=== PATIENT | female | born 1995 | race Caucasian/White ===

== ENCOUNTER 2017-11-08 15:01 | Emergency (ER) | payer SELFPAY ==
[~2017-11-08] VITALS: Ht 162.6 cm; Wt 101.4 kg
[2017-11-08] MEDS ORDERED: PRENATAL (15:35)
[2017-11-08] MEDS ORDERED: ZOFRAN ODT4 MG PO (16:20)
[2017-11-08 16:53] VITALS: BP 133/82; PULSE 96; TEMP 98.2
== END 2017-11-08 16:45 | disposition home or self-care (01) ==
LOC: COL.ER 15:01
DX: O9A.212 Injury, poisoning and certain other consequences of external causes complicating pregnancy, second trimester (principal); O21.9 Vomiting of pregnancy, unspecified; S30.0XXA Contusion of lower back and pelvis, initial encounter; Z3A.15 15 weeks gestation of pregnancy; W18.39XA Other fall on same level, initial encounter

== ENCOUNTER 2018-03-20 20:26 | Outpatient (CLI) | payer MEDICAID ==
[~2018-03-20] VITALS: Ht 157.5 cm; Wt 114.1 kg
[~2018-03-20 20:26] MED LIST: PRENATAL; ZOFRAN ODT4 MG PO
[2018-03-20] MEDS ORDERED: TYLENOL 500MG500 MG PO (21:11)
[2018-03-20 21:28] VITALS: BP 110/57; PULSE 108; TEMP 97.6
== END 2018-03-20 21:45 ==
LOC: LDRO 20:26
DX: O36.8130 Decreased fetal movements, third trimester, not applicable or unspecified (principal); Z3A.34 34 weeks gestation of pregnancy

== ENCOUNTER 2018-04-22 08:29 | Inpatient (IN) | payer MEDICAID ==
[2018-04-22] VITALS (52 sets, daily range): BP systolic 98–144; BP diastolic 53–95; PULSE 86–125; TEMP 97.6–98.1
[~2018-04-22] VITALS: Ht 157.5 cm; Wt 120.0 kg
[~2018-04-22 08:29] MED LIST changes: +TYLENOL 500MG500 MG PO
[2018-04-22 10:35] LABS: BASO % 0.2 % (0.0-2.0); EOS # 0.1 (0.0-0.7); EOS % 0.8 % (0-4.0); GRAN # 8.6 (1.4-6.5); HEMATOCRIT 37.2 % (37.0-47.0); HEMOGLOBIN 13.2 g/dl (12.5-16.0); LYMPH # 2.4 (1.2-3.4); LYMPH % 19.6 % (20.0-51.0); MEAN CELL VOLUME 91 fl (80.0-100.0); MEAN CORPUSCULAR HEMOGLOBIN 32 pg (27.0-31.0); MEAN CORPUSCULAR HGB CONC 36 g/dl (33.0-37.0); MEAN PLATELET VOLUME 11.5 fl (7.4-10.4); MONO # 0.8 (0.1-0.6); MONO % 6.7 % (1.7-9.3); PLATELET COUNT 185 K/mm3 (130-400); RED BLOOD COUNT 4.07 M/mm3 (4.10-5.30); REDCELL DISTRIBUTION WIDTH-CV 12.2 % (11.5-14.5)
[2018-04-22 10:42] LABS: TRICYCLIC ANTIDEPRESS URINE NEGATIVE
[2018-04-23 00:05] VITALS: BP 111/63; PULSE 102; TEMP 98
[2018-04-23 03:55] VITALS: BP 106/45; PULSE 107; TEMP 98.5
[2018-04-23 07:02] VITALS: BP 109/70; PULSE 108; TEMP 98.5
[2018-04-23 17:54] VITALS: BP 98/52; PULSE 97; TEMP 97.9
[2018-04-23 20:30] VITALS: BP 116/75; PULSE 97; TEMP 97.7
[2018-04-24 08:00] VITALS: BP 122/73; PULSE 98; TEMP 97.4
[2018-04-24] MEDS ORDERED: LOVENOX 4040 MG/0.4 SQ (12:56)
[2018-04-24] MEDS ORDERED: PERCOCET 325 MG1 TA2 PO (12:57)
== END 2018-04-24 15:30 | disposition home or self-care (01) | DRG 806 ==
LOC: LDRO 08:29 → LDR 09:02 → OB 09:02
PROVIDERS: Obstetrics & Gynecology
PROC: 10E0XZZ Delivery of Products of Conception, External Approach (ICD-10-PCS; principal; 2018-04-22)
PROC: 0HQ9XZZ Repair Perineum Skin, External Approach (ICD-10-PCS; 2018-04-22)
DX: O42.02 Full-term premature rupture of membranes, onset of labor within 24 hours of rupture (principal); O99.354 Diseases of the nervous system complicating childbirth; Z37.0 Single live birth; O99.344 Other mental disorders complicating childbirth; O99.824 Streptococcus B carrier state complicating childbirth; Z3A.39 39 weeks gestation of pregnancy; Q07.00 Arnold-Chiari syndrome without spina bifida or hydrocephalus; Z86.73 Personal history of transient ischemic attack (TIA), and cerebral infarction without residual deficits; O99.214 Obesity complicating childbirth; F41.9 Anxiety disorder, unspecified; K21.9 Gastro-esophageal reflux disease without esophagitis; O99.62 Diseases of the digestive system complicating childbirth; O70.0 First degree perineal laceration during delivery
CPT/HCPCS: J1650; J2540; J2590; J2795; J7120

== ENCOUNTER 2018-12-08 16:19 | Emergency (ER) | payer MEDICAID ==
[~2018-12-08] VITALS: Ht 165.1 cm; Wt 120.9 kg
[~2018-12-08 16:19] MED LIST changes: +LOVENOX 4040 MG/0.4 SQ; +PERCOCET 325 MG1 TA2 PO
[2018-12-08 16:37] VITALS: BP 115/74; TEMP 98.7
[2018-12-08 18:31] LABS: COLLECTION METHOD CLEAN CATCH
[2018-12-08] MEDS ORDERED: PROAIR HFA0.09 MG/AC (18:33)
[2018-12-08 18:39] LABS: BASO # 0.1 (0.0-0.2); BASO % 0.6 % (0.0-2.0); EOS # 0.1 (0.0-0.7); EOS % 1.4 % (0-4.0); GRAN # 4.6 (1.4-6.5); GRAN % 51.3 % (42.2-75.2); HEMATOCRIT 43.2 % (37.0-47.0); HEMOGLOBIN 14.9 g/dl (12.5-16.0); LYMPH # 3.4 (1.2-3.4); MEAN CELL VOLUME 88 fl (80.0-100.0); MEAN CORPUSCULAR HEMOGLOBIN 30 pg (27.0-31.0); MEAN CORPUSCULAR HGB CONC 35 g/dl (33.0-37.0); MEAN PLATELET VOLUME 10.6 fl (7.4-10.4); MONO # 0.9 (0.1-0.6); MONO % 9.4 % (1.7-9.3); PLATELET COUNT 234 K/mm3 (130-400); RED BLOOD COUNT 4.91 M/mm3 (4.10-5.30); REDCELL DISTRIBUTION WIDTH-CV 12.2 % (11.5-14.5)
[2018-12-08 18:40] LABS: MUCOUS Present /lpf; PH 5 (5-8); SQUAMOUS EPITHELIAL 0-2 /hpf; URINE APPEARANCE Clear; URINE BACTERIA None Seen /hpf; URINE BILIRUBIN Negative (NEGATIVE); URINE BLOOD 3+ (NEGATIVE); URINE COLOR Yellow; URINE GLUCOSE Negative (NEGATIVE); URINE KETONE Negative (NEGATIVE); URINE LEUKOCYTE ESTERASE Negative (NEGATIVE); URINE NITRATE Negative (NEGATIVE); URINE PROTEIN(semi-quant) Negative (NEGATIVE); URINE RBC 0-2 /hpf
[2018-12-08 18:49] LABS: ALBUMIN 4.1 gm/dL (3.5-5.0); BILIRUBIN,TOTAL 0.4 mg/dL (0.0-1.0); C-REACTIVE PROTEIN 0.6 mg/dL (0.0-0.9); CALCIUM 9.4 mg/dL (8.4-10.2); CREATININE, serum 0.91 (0.52-1.25); POTASSIUM 3.9 mmol/L (3.4-5.0); TOTAL PROTEIN 7.3 gm/dL (6.4-8.2)
[2018-12-08] MEDS ORDERED: AMOXICILLIN 50500 MG PO (19:29)
[2018-12-08 20:05] VITALS: PULSE 94
== END 2018-12-08 20:00 | disposition home or self-care (01) ==
LOC: COL.ER 16:19
PROVIDERS: Emergency Medicine
DX: N93.8 Other specified abnormal uterine and vaginal bleeding (principal); K02.9 Dental caries, unspecified; M54.5 Low back pain; F17.210 Nicotine dependence, cigarettes, uncomplicated
CPT/HCPCS: J2405; J7030

== ENCOUNTER 2019-04-18 18:56 | Emergency (ER) | payer SELFPAY ==
[~2019-04-18] VITALS: Ht 165.1 cm; Wt 113.6 kg
[~2019-04-18 18:56] MED LIST changes: +AMOXICILLIN 50500 MG PO; +PROAIR HFA0.09 MG/AC
[2019-04-18 19:00] VITALS: BP 104/67; TEMP 97.2
[2019-04-18] MEDS ORDERED: PROAIR HFA0.09 MG/AC IH (19:23)
[2019-04-18] MEDS ORDERED: NEXPLANON68 MG ID (19:25)
[2019-04-18] MEDS ORDERED: AMOXICILLIN 50500 MG PO (19:32)
[2019-04-18 19:59] VITALS: PULSE 90
== END 2019-04-18 19:59 | disposition home or self-care (01) ==
LOC: COL.ER 18:56
DX: K02.9 Dental caries, unspecified (principal); Z86.73 Personal history of transient ischemic attack (TIA), and cerebral infarction without residual deficits

== ENCOUNTER 2019-04-28 15:48 | Emergency (ER) | payer SELFPAY ==
[~2019-04-28] VITALS: Ht 165.1 cm; Wt 115.2 kg
[~2019-04-28 15:48] MED LIST changes: +NEXPLANON68 MG ID; +PROAIR HFA0.09 MG/AC IH
[2019-04-28 15:54] VITALS: BP 102/69; TEMP 97.6
[2019-04-28 17:15] LABS: COLLECTION METHOD CLEAN CATCH
[2019-04-28 17:24] LABS: MUCOUS Present /lpf; PH 5 (5-8); URINE APPEARANCE Hazy; URINE BACTERIA Rare /hpf; URINE BILIRUBIN Negative (NEGATIVE); URINE BLOOD 1+ (NEGATIVE); URINE COLOR Yellow; URINE GLUCOSE Negative (NEGATIVE); URINE KETONE Negative (NEGATIVE); URINE LEUKOCYTE ESTERASE 1+ (NEGATIVE); URINE NITRATE Negative (NEGATIVE); URINE PROTEIN(semi-quant) Negative (NEGATIVE); URINE UROBILINOGEN Negative (NEGATIVE)
[2019-04-28] MEDS ORDERED: ZOFRAN ODT4 MG PO (17:33)
[2019-04-28 18:25] VITALS: PULSE 108
== END 2019-04-28 18:25 | disposition home or self-care (01) ==
LOC: COL.ER 15:48
PROVIDERS: Physician Assistant
DX: R11.10 Vomiting, unspecified (principal); R19.7 Diarrhea, unspecified; F43.10 Post-traumatic stress disorder, unspecified; F17.210 Nicotine dependence, cigarettes, uncomplicated

== ENCOUNTER 2019-07-30 20:24 | Emergency (ER) | payer SELFPAY ==
[~2019-07-30] VITALS: Ht 165.1 cm; Wt 115.9 kg
[2019-07-30 20:54] VITALS: BP 121/69; TEMP 98.7
[2019-07-30 21:56] LABS: COLLECTION METHOD CLEAN CATCH
[2019-07-30 22:01] LABS: MUCOUS Present /lpf; PH 6 (5-8); URINE APPEARANCE Clear; URINE BACTERIA Rare /hpf; URINE BILIRUBIN Negative (NEGATIVE); URINE BLOOD Negative (NEGATIVE); URINE COLOR Yellow; URINE GLUCOSE Negative (NEGATIVE); URINE KETONE Negative (NEGATIVE); URINE LEUKOCYTE ESTERASE Negative (NEGATIVE); URINE NITRATE Negative (NEGATIVE); URINE PROTEIN(semi-quant) Negative (NEGATIVE); URINE RBC 0-2 /hpf; URINE UROBILINOGEN Negative (NEGATIVE)
[2019-07-30 23:26] LABS: BASO % 0.3 % (0.0-2.0); EOS # 0.1 (0.0-0.7); EOS % 1.4 % (0-4.0); GRAN # 5.8 (1.4-6.5); GRAN % 64.1 % (42.2-75.2); HEMATOCRIT 44.9 % (37.0-47.0); HEMOGLOBIN 15.4 g/dl (12.5-16.0); LYMPH # 2.5 (1.2-3.4); LYMPH % 27.4 % (20.0-51.0); MEAN CELL VOLUME 90 fl (80.0-100.0); MEAN CORPUSCULAR HEMOGLOBIN 31 pg (27.0-31.0); MEAN CORPUSCULAR HGB CONC 34 g/dl (33.0-37.0); MEAN PLATELET VOLUME 10.3 fl (7.4-10.4); MONO # 0.6 (0.1-0.6); MONO % 6.4 % (1.7-9.3); PLATELET COUNT 193 K/mm3 (130-400); REDCELL DISTRIBUTION WIDTH-CV 12.4 % (11.5-14.5)
[2019-07-30 23:37] LABS: ALANINE AMINOTRANSFERASE 15 U/L (9-52); ALBUMIN 4.1 gm/dL (3.5-5.0); ALKALINE PHOSPHATASE 121 U/L (50-136); ANION GAP 10 mmol/L (7-16); AST,SGOT 21 U/L (15-37); BILIRUBIN,TOTAL 0.5 mg/dL (0.0-1.0); BLOOD UREA NITROGEN 16 mg/dL (7-17); C-REACTIVE PROTEIN < 0.5 mg/dL (0.0-0.9); CALCIUM 8.9 mg/dL (8.4-10.2); CARBON DIOXIDE 22 mmol/L (22-30); CHLORIDE 109 mmol/L (98-107); GLUCOSE 101 mg/dL (74-106); POTASSIUM 3.5 mmol/L (3.4-5.0); SODIUM 140 mmol/L (137-145); TOTAL PROTEIN 7.3 gm/dL (6.4-8.2)
[2019-07-31 01:02] VITALS: PULSE 88
== END 2019-07-31 01:02 | disposition home or self-care (01) ==
LOC: COL.ER 20:24
PROVIDERS: Emergency Medicine; Physician Assistant
DX: J45.909 Unspecified asthma, uncomplicated (principal); M54.5 Low back pain; F17.210 Nicotine dependence, cigarettes, uncomplicated; Z86.73 Personal history of transient ischemic attack (TIA), and cerebral infarction without residual deficits; Z90.49 Acquired absence of other specified parts of digestive tract
CPT/HCPCS: J7030

== ENCOUNTER 2020-03-27 19:58 | Emergency (ER) | payer MEDICAID ==
[~2020-03-27] VITALS: Ht 165.1 cm; Wt 113.6 kg
[2020-03-27 20:23] VITALS: TEMP 98.2
[2020-03-27] MEDS ORDERED: DOXYCYCLINE 10100 MG PO (22:21)
[2020-03-27 22:30] VITALS: BP 104/77; PULSE 96
[2020-03-29] MEDS ORDERED: NORCO 325 MG-51 TAB PO (17:39)
== END 2020-03-27 22:30 | disposition home or self-care (01) ==
LOC: COL.ER 19:58
DX: S30.860A Insect bite (nonvenomous) of lower back and pelvis, initial encounter (principal); Z88.6 Allergy status to analgesic agent; W57.XXXA Bitten or stung by nonvenomous insect and other nonvenomous arthropods, initial encounter

== ENCOUNTER 2020-08-02 14:48 | Emergency (ER) | payer MEDICAID ==
[~2020-08-02] VITALS: Ht 165.1 cm; Wt 113.6 kg
[~2020-08-02 14:48] MED LIST changes: +DOXYCYCLINE 10100 MG PO; +NORCO 325 MG-51 TAB PO
[2020-08-02 15:43] VITALS: BP 107/69; PULSE 72; TEMP 97.3
== END 2020-08-02 16:43 | disposition left against medical advice (07) ==
LOC: COL.ER 14:48
DX: K08.89 Other specified disorders of teeth and supporting structures (principal); M54.9 Dorsalgia, unspecified; R10.32 Left lower quadrant pain; Z88.6 Allergy status to analgesic agent; Z91.040 Latex allergy status; Z79.51 Long term (current) use of inhaled steroids

== ENCOUNTER 2020-08-07 16:41 | Emergency (ER) | payer MEDICAID ==
[~2020-08-07] VITALS: Ht 165.1 cm; Wt 116.4 kg
[2020-08-07 16:49] VITALS: BP 105/75; TEMP 97.3
[2020-08-07 17:05] LABS: COLLECTION METHOD CLEAN CATCH
[2020-08-07 17:14] LABS: MUCOUS Present /lpf; PH 7 (5-8); URINE APPEARANCE Hazy; URINE BACTERIA Rare /hpf; URINE BILIRUBIN Negative (NEGATIVE); URINE BLOOD Negative (NEGATIVE); URINE COLOR Yellow; URINE GLUCOSE Negative (NEGATIVE); URINE KETONE Negative (NEGATIVE); URINE LEUKOCYTE ESTERASE Negative (NEGATIVE); URINE NITRATE Negative (NEGATIVE); URINE PROTEIN(semi-quant) Negative (NEGATIVE); URINE RBC 0-2 /hpf; URINE UROBILINOGEN Negative (NEGATIVE)
[2020-08-07] MEDS ORDERED: AMOXICILLIN 8751 TAB PO (18:12)
[2020-08-07] MEDS ORDERED: FLEXERIL 1010 MG/TAB PO (18:12)
[2020-08-07 18:21] VITALS: PULSE 94
== END 2020-08-07 18:22 | disposition home or self-care (01) ==
LOC: COL.ER 16:41
PROVIDERS: Nurse Practitioner Primary Care
DX: K04.7 Periapical abscess without sinus (principal); M62.830 Muscle spasm of back; F17.200 Nicotine dependence, unspecified, uncomplicated; Z32.02 Encounter for pregnancy test, result negative; Z88.6 Allergy status to analgesic agent; Z91.040 Latex allergy status; Z79.51 Long term (current) use of inhaled steroids

== ENCOUNTER 2020-10-20 16:46 | Emergency (ER) | payer MEDICAID ==
[~2020-10-20] VITALS: Ht 165.1 cm; Wt 114.0 kg
[~2020-10-20 16:46] MED LIST changes: +AMOXICILLIN 8751 TAB PO; +FLEXERIL 1010 MG/TAB PO
[2020-10-20 17:02] VITALS: BP 120/80; TEMP 97.9
[2020-10-20] MEDS ORDERED: CLEOCIN HCL300 MG PO (18:23)
[2020-10-20 18:43] VITALS: PULSE 93
== END 2020-10-20 18:43 | disposition home or self-care (01) ==
LOC: COL.ER 16:46
DX: K04.7 Periapical abscess without sinus (principal); Z88.6 Allergy status to analgesic agent; Z87.891 Personal history of nicotine dependence

== ENCOUNTER 2020-11-14 15:51 | Emergency (ER) | payer MEDICAID ==
[~2020-11-14] VITALS: Ht 165.1 cm; Wt 113.6 kg
[~2020-11-14 15:51] MED LIST changes: +CLEOCIN HCL300 MG PO
[2020-11-14 16:21] VITALS: BP 105/46; PULSE 89; TEMP 97.5
== END 2020-11-14 17:49 | disposition home or self-care (01) ==
LOC: COL.ER 15:51
PROVIDERS: Physician Assistant
DX: Z32.02 Encounter for pregnancy test, result negative (principal); J45.909 Unspecified asthma, uncomplicated; Z88.6 Allergy status to analgesic agent; Z91.040 Latex allergy status; Z87.891 Personal history of nicotine dependence

== ENCOUNTER 2021-01-05 16:18 | Emergency (ER) | payer MEDICAID ==
[~2021-01-05] VITALS: Ht 165.1 cm; Wt 115.9 kg
[2021-01-05 16:37] VITALS: TEMP 98.4
[2021-01-05 17:19] LABS: BASO # 0.1 (0.0-0.2); BASO % 0.6 % (0.0-2.0); EOS # 0.1 (0.0-0.7); EOS % 1.2 % (0-4.0); GRAN # 4.5 (1.4-6.5); GRAN % 54.6 % (42.2-75.2); HEMATOCRIT 41.6 % (37.0-47.0); HEMOGLOBIN 14.5 g/dl (12.5-16.0); LYMPH # 2.9 (1.2-3.4); LYMPH % 34.9 % (20.0-51.0); MEAN CELL VOLUME 90 fl (80.0-100.0); MEAN CORPUSCULAR HEMOGLOBIN 31 pg (27.0-31.0); MEAN CORPUSCULAR HGB CONC 35 g/dl (33.0-37.0); MEAN PLATELET VOLUME 10.2 fl (7.4-10.4); MONO # 0.7 (0.1-0.6); MONO % 8.2 % (1.7-9.3); PLATELET COUNT 204 K/mm3 (130-400); RED BLOOD COUNT 4.62 M/mm3 (4.10-5.30); REDCELL DISTRIBUTION WIDTH-CV 11.8 % (11.5-14.5)
[2021-01-05 17:53] LABS: COLLECTION METHOD CLEAN CATCH
[2021-01-05 18:11] LABS: PH 5 (5-8); SQUAMOUS EPITHELIAL 0-2 /hpf; URINE APPEARANCE Clear; URINE BACTERIA Rare /hpf; URINE BILIRUBIN Negative (NEGATIVE); URINE BLOOD 3+ (NEGATIVE); URINE COLOR Yellow; URINE GLUCOSE Negative (NEGATIVE); URINE KETONE Negative (NEGATIVE); URINE LEUKOCYTE ESTERASE Negative (NEGATIVE); URINE NITRATE Negative (NEGATIVE); URINE PROTEIN(semi-quant) Negative (NEGATIVE); URINE RBC 0-2 /hpf; URINE UROBILINOGEN Negative (NEGATIVE)
[2021-01-05] MEDS ORDERED: REGLAN 10MG10 MG/TAB PO (18:35)
[2021-01-05 18:43] VITALS: BP 117/69; PULSE 85
== END 2021-01-05 18:45 | disposition home or self-care (01) ==
LOC: COL.ER 16:18
PROVIDERS: Physician Assistant
DX: O20.0 Threatened abortion (principal); Z3A.01 Less than 8 weeks gestation of pregnancy; Z88.6 Allergy status to analgesic agent
CPT/HCPCS: J7030

== ENCOUNTER 2021-01-07 16:55 | Emergency (ER) | payer MEDICAID ==
[~2021-01-07] VITALS: Ht 165.1 cm; Wt 117.3 kg
[~2021-01-07 16:55] MED LIST changes: +REGLAN 10MG10 MG/TAB PO
[2021-01-07 17:56] VITALS: TEMP 98
[2021-01-07 18:42] LABS: BASO # 0.1 (0.0-0.2); BASO % 0.5 % (0.0-2.0); EOS # 0.1 (0.0-0.7); EOS % 1.2 % (0-4.0); GRAN # 5.1 (1.4-6.5); HEMATOCRIT 45.3 % (37.0-47.0); HEMOGLOBIN 15.2 g/dl (12.5-16.0); LYMPH # 3.1 (1.2-3.4); LYMPH % 33.6 % (20.0-51.0); MEAN CELL VOLUME 93 fl (80.0-100.0); MEAN CORPUSCULAR HEMOGLOBIN 31 pg (27.0-31.0); MEAN CORPUSCULAR HGB CONC 34 g/dl (33.0-37.0); MEAN PLATELET VOLUME 10.2 fl (7.4-10.4); MONO # 0.9 (0.1-0.6); MONO % 9.2 % (1.7-9.3); PLATELET COUNT 220 K/mm3 (130-400); RED BLOOD COUNT 4.86 M/mm3 (4.10-5.30); REDCELL DISTRIBUTION WIDTH-CV 11.9 % (11.5-14.5)
[2021-01-07 18:48] LABS: ALANINE AMINOTRANSFERASE 18 U/L (4-34); ALBUMIN 3.9 gm/dL (3.5-5.0); ALKALINE PHOSPHATASE 99 U/L (50-136); ANION GAP 0 mmol/L (7-16); AST,SGOT 38 U/L (15-37); BILIRUBIN,TOTAL 0.3 mg/dL (0.0-1.0); BLOOD UREA NITROGEN 9 mg/dL (7-17); CALCIUM 9.1 mg/dL (8.4-10.2); CARBON DIOXIDE 24 mmol/L (22-30); CHLORIDE 110 mmol/L (98-107); CREATININE, serum 0.68 (0.52-1.25); GLUCOSE 85 mg/dL (74-106); POTASSIUM 4.1 mmol/L (3.4-5.0); SODIUM 134 mmol/L (137-145); TOTAL PROTEIN 7.2 gm/dL (6.4-8.2)
[2021-01-07 18:49] LABS: C-REACTIVE PROTEIN < 0.5 mg/dL (0.0-0.9)
[2021-01-07 19:07] LABS: HCG,QUANTITATIVE 2574 mIU/mL (0-5)
[2021-01-07] MEDS ORDERED: TYLENOL 500MG500 MG PO (20:05)
[2021-01-07 20:23] VITALS: BP 122/62; PULSE 84
== END 2021-01-07 20:23 | disposition home or self-care (01) ==
LOC: COL.ER 16:55
PROVIDERS: Nurse Practitioner
DX: O20.0 Threatened abortion (principal); Z3A.01 Less than 8 weeks gestation of pregnancy; Z88.6 Allergy status to analgesic agent
CPT/HCPCS: J3010; J7030

== ENCOUNTER 2021-06-14 22:49 | Emergency (ER) | payer MEDICAID ==
[~2021-06-14] VITALS: Ht 162.6 cm; Wt 115.0 kg
[2021-06-14 23:08] VITALS: TEMP 97.4
[2021-06-14 23:48] LABS: BASO % 0.4 % (0.0-2.0); EOS # 0.1 K/mm3 (0.0-0.7); EOS % 1.4 % (0-4.0); GRAN # 4.6 K/mm3 (1.4-6.5); GRAN % 64.3 % (42.2-75.2); HEMATOCRIT 37.7 % (37.0-47.0); HEMOGLOBIN 13.4 g/dl (12.5-16.0); LYMPH # 1.7 K/mm3 (1.2-3.4); LYMPH % 23.5 % (20.0-51.0); MEAN CELL VOLUME 87 fl (80.0-100.0); MEAN CORPUSCULAR HEMOGLOBIN 31 pg (27.0-31.0); MEAN CORPUSCULAR HGB CONC 36 g/dl (33.0-37.0); MEAN PLATELET VOLUME 10.3 fl (7.4-10.4); MONO # 0.7 K/mm3 (0.1-0.6); MONO % 9.8 % (1.7-9.3); PLATELET COUNT 169 K/mm3 (130-400); RED BLOOD COUNT 4.32 M/mm3 (4.10-5.30); REDCELL DISTRIBUTION WIDTH-CV 12.2 % (11.5-14.5)
[2021-06-15 00:26] VITALS: BP 154/80; PULSE 76
== END 2021-06-15 00:26 | disposition home or self-care (01) ==
LOC: COL.ER 22:49
PROVIDERS: Emergency Medicine Emergency Medical Services
DX: O9A.211 Injury, poisoning and certain other consequences of external causes complicating pregnancy, first trimester (principal); S30.1XXA Contusion of abdominal wall, initial encounter; Z3A.15 15 weeks gestation of pregnancy

== ENCOUNTER 2021-06-16 18:14 | Emergency (ER) | payer MEDICAID ==
[~2021-06-16] VITALS: Ht 162.6 cm; Wt 115.0 kg
[2021-06-16 21:14] VITALS: BP 134/90; PULSE 100
== END 2021-06-16 21:14 | disposition home or self-care (01) ==
LOC: COL.ER 18:14
DX: O9A.211 Injury, poisoning and certain other consequences of external causes complicating pregnancy, first trimester (principal); S70.02XA Contusion of left hip, initial encounter; O10.011 Pre-existing essential hypertension complicating pregnancy, first trimester; Y04.0XXA Assault by unarmed brawl or fight, initial encounter

== ENCOUNTER 2021-09-26 18:32 | Outpatient (CLI) | payer MEDICAID ==
[~2021-09-26] VITALS: Ht 162.6 cm; Wt 118.2 kg
--- NOTE | 2021-09-26 18:40 | NUR ---
1837- 26 yo, L3, 26.6 wga: Pt presents to OB unit c/o DFM. Pt escorted to room, ambulatory, accompanied by sig. other. Instructions given to pt. Pt up to BR to void. 1846- EFM and toco applied. Pt denies any LOF, VB or CTX. Pt reports she hasn't felt any movement since yesterday. Pt reports she tried drinking cold water and juice and pressing on stomach to no avail. Educated pt the importance of coming in to be evaluated early if she has not been feeling movement. 1849- VSS. movement reported per pt. Pt rates pain 12/15. 1914- Assessment performed and intake information. Pt has had an extensive hx of pregnanices and losses. 1919- Wilkes juice given to pt. Pt reports starting to feel more movement. 1929- Dr. Chavez called and report given. Orders rec'd to DC pt home and to attend f/u appt as scheduled. Monitors removed for DC. 1944- Discharge instructions reviewed w/ pt and verbalizes understanding. 1946- Dc home. Ambulatory off unit, accompanie by sig.other.
[2021-09-26 18:50] VITALS: BP 108/55; PULSE 98; TEMP 98.4
[2021-09-26] MEDS ORDERED: PRENATAL TABLET PO (19:00)
== END 2021-09-26 19:47 | disposition home or self-care (01) ==
LOC: LDRO 18:32 → LDR 18:40 → LDRO 19:47
DX: O36.8190 Decreased fetal movements, unspecified trimester, not applicable or unspecified (principal); Z3A.00 Weeks of gestation of pregnancy not specified
CPT/HCPCS: OP

== ENCOUNTER 2021-11-27 16:25 | Outpatient (CLI) | payer MEDICAID ==
[~2021-11-27] VITALS: Ht 157.5 cm; Wt 125.0 kg
[~2021-11-27 16:25] MED LIST changes: +PRENATAL TABLET PO
--- NOTE | 2021-11-27 16:45 | NUR ---
Pt arrived on unit ambulatory and with concerns for contractions and increased discharge over the last couple days. Pt reports some concern for decreased movement earlier today but than felt baby move before coming in. EFM and toco monitors started. Vital signs WNL. Dr. Bose notified of pt's arrival. See physician notification for details.
[2021-11-27 17:48] VITALS: BP 109/59; PULSE 96; TEMP 97.8
--- NOTE | 2021-11-27 17:55 | NUR ---
SVE with no change /4. Discharge instructions and follow up care reviewed with pt and at the bedside. Both verbalized an understanding, agreed with plan and states no questions or concerns.
== END 2021-11-27 18:05 | disposition home or self-care (01) ==
LOC: LDRO 16:25 → LDR 17:09 → LDRO 18:05
DX: O47.03 False labor before 37 completed weeks of gestation, third trimester (principal); Z3A.35 35 weeks gestation of pregnancy
CPT/HCPCS: OP

== ENCOUNTER 2021-12-19 20:42 | Outpatient (CLI) | payer MEDICAID ==
[~2021-12-19] VITALS: Ht 157.5 cm; Wt 128.6 kg
--- NOTE | 2021-12-19 20:45 | NUR ---
Pt arrives to unit with complaint of 4 contractions over 1 hour and losing mucous plus today. Pt states she has had sudden sharp pains in her abdomen all day. Reports feeling good movement, denies vaginal bleeding. Pt denies headaches, blurry vision, or RUQ pain. Pt oriented to room, call light within reach, bed in low and locked position. Clean gown on. US and toco explained and applied. Admission assessment started. Vitals obtained. SVE 70/-3, anterior position, membranes intact Plan of care reviewed with patient and spouse.
[2021-12-19 21:15] VITALS: BP 108/73; PULSE 102; TEMP 98.6
--- NOTE | 2021-12-19 21:15 | NUR ---
Asking assessment questions since arrival and patient has not reported contractions and no contractions on monitor. Pt with complicated social and medical history. Pt reports being diagnoses with chiari malformation in 2008 and has seziures due to this. Pt has not had seizure in 2 years and is not currently on any seizure medications. Pt reports using "THC pen" when she feels an aura and she might have a seizure, she reports last using about 1 week ago. Pt states that she has had 3 SABs with 1 being around 21 weeks with a D&E. Pt has had 4 other live births but only has 1 living child at this time. Pt reports her first born being a son that when he was 7 years old after taking 20 of his fathers vicodins. One daughter of SIDS 1 week before she turned 3 and other daughter around 4 months old after having pneumonia and she was told "she wasn't going to make it." Pt reports all 3 of those pregnancies were from nonconsensual intercourse. Pt states she was recently in [employer]p for [place] theft. States that during Covid she lost her job and was taking pull ups, wipes, and food from [employer] for her son. States they let her off on probation since it was for her child. Pt violated her probation and was in usp for another 6 days during this . Informed patient that we would perform a urine drug screen whenever she is admitted in labor, verbalized understanding.
[2021-12-19 22:20] VITALS: BP 115/74; PULSE 93
--- NOTE | 2021-12-19 22:30 | NUR ---
SVE unchanged over 1 hour. Category 1 FHR tracing obtained. Discharge instructions reviewed with patient and spouse, verbalized understanding. Pt seen ambulating off unit with spouse.
== END 2021-12-19 22:30 | disposition home or self-care (01) ==
LOC: LDRO 20:42 → LDR 21:35 → LDRO 22:30
DX: O62.9 Abnormality of forces of labor, unspecified (principal); Z3A.38 38 weeks gestation of pregnancy
CPT/HCPCS: OP

== ENCOUNTER 2021-12-21 18:03 | Inpatient (IN) | payer MEDICAID ==
[2021-12-21] VITALS (25 sets, daily range): BP systolic 97–141; BP diastolic 55–79; PULSE 68–130; TEMP 97.8–98.1
[~2021-12-21] VITALS: Ht 157.5 cm; Wt 128.2 kg
[2021-12-21 20:19] LABS: BASO % 0.4 % (0.0-2.0); EOS # 0.1 K/mm3 (0.0-0.7); EOS % 0.8 % (0.0-4.0); GRAN # 7.7 K/mm3 (1.4-6.5); GRAN % 68.5 % (42.2-75.2); HEMATOCRIT 38.2 % (37.0-47.0); HEMOGLOBIN 13.5 g/dl (12.5-16.0); LYMPH # 2.3 K/mm3 (1.2-3.4); LYMPH % 20.5 % (20.0-51.0); MEAN CELL VOLUME 90 fl (80.0-100.0); MEAN CORPUSCULAR HEMOGLOBIN 32 pg (27-31); MEAN CORPUSCULAR HGB CONC 35 g/dl (33.0-37.0); MEAN PLATELET VOLUME 11.1 fl (7.4-10.4); MONO # 0.9 K/mm3 (0.1-0.6); MONO % 8.4 % (1.7-9.3); PLATELET COUNT 212 K/mm3 (130-400); RED BLOOD COUNT 4.25 M/mm3 (4.10-5.30); REDCELL DISTRIBUTION WIDTH-CV 13.5 % (11.5-14.5)
[2021-12-21 20:33] LABS: TRICYCLIC ANTIDEPRESS URINE NEGATIVE
[2021-12-22] VITALS (33 sets, daily range): BP systolic 81–131; BP diastolic 47–71; PULSE 84–128; TEMP 97.6–98.2
[2021-12-23 06:30] LABS: HEMATOCRIT 32.8 % (37.0-47.0)
[2021-12-23 06:32] LABS: HEMOGLOBIN 11.3 g/dl (12.5-16.0)
[2021-12-23 08:00] VITALS: BP 100/65; PULSE 73; TEMP 97.9
[2021-12-23 16:24] VITALS: BP 107/72; PULSE 90; TEMP 98.2
[2021-12-23 20:00] VITALS: BP 105/64; PULSE 80; TEMP 98.8
[2021-12-24 07:35] VITALS: BP 103/67; PULSE 90; TEMP 97.9
[2021-12-24] MEDS ORDERED: LOVENOX 4040 MG/0.4 SQ (07:58)
[2021-12-24] MEDS ORDERED: ROXICODONE 55 MG/TAB PO (07:58)
== END 2021-12-24 16:30 | disposition home or self-care (01) | DRG 806 ==
LOC: OB 18:41 → LDR 18:41 → OB 12-22 07:00
PROVIDERS: ADMIT Obstetrics & Gynecology
PROC: 10E0XZZ Delivery of Products of Conception, External Approach (ICD-10-PCS; principal; 2021-12-22)
PROC: 10907ZC Drainage of Amniotic Fluid, Therapeutic from Products of Conception, Via Natural or Artificial Opening (ICD-10-PCS; 2021-12-22)
PROC: 3E033VJ Introduction of Other Hormone into Peripheral Vein, Percutaneous Approach (ICD-10-PCS; 2021-12-22)
DX: O99.344 Other mental disorders complicating childbirth (principal); O99.324 Drug use complicating childbirth; Z37.0 Single live birth; F41.9 Anxiety disorder, unspecified; O99.214 Obesity complicating childbirth; E66.9 Obesity, unspecified; O99.52 Diseases of the respiratory system complicating childbirth; F44.81 Dissociative identity disorder; O99.334 Smoking (tobacco) complicating childbirth; O99.824 Streptococcus B carrier state complicating childbirth; F12.90 Cannabis use, unspecified, uncomplicated; O77.0 Labor and delivery complicated by meconium in amniotic fluid; O69.81X0 Labor and delivery complicated by cord around neck, without compression, not applicable or unspecified; J45.20 Mild intermittent asthma, uncomplicated; F17.200 Nicotine dependence, unspecified, uncomplicated; Z86.73 Personal history of transient ischemic attack (TIA), and cerebral infarction without residual deficits; Z14.1 Cystic fibrosis carrier; Z3A.39 39 weeks gestation of pregnancy
CPT/HCPCS: J1650; J2405; J2540; J2590; J7120

== ENCOUNTER 2023-12-19 16:02 | Inpatient (IN) | payer MEDICAID ==
[2023-12-19] VITALS (20 sets, daily range): BP systolic 88–116; BP diastolic 50–69; PULSE 68–93; TEMP 79.9–98
[~2023-12-19] VITALS: Ht 162.6 cm; Wt 119.5 kg
[~2023-12-19 16:02] MED LIST changes: +ROXICODONE 55 MG/TAB PO
[2023-12-19] MEDS ORDERED: LR 1,000 ML IV PRN (16:15)
[2023-12-19] MEDS ORDERED: PRILOSEC10 MG PO (17:12)
--- NOTE | 2023-12-19 17:21 | NUR ---
1610 PT PRESENTS TO UNIT COMPLAINING OF CONTRACTIONS THAT STARTED THIS MORNING. PT STATES CONTRACTIONS HAVE GOTTEN CLOSER TOGETHER AND STRONGER OVER THE LAST FEW HOURS. PT DENIES LOF, VB, DFM OR ANY OTHER CHANGES/CONCERNS. PT DENIES ANY COMPLICATIONS WITH THIS . PT STATES SHE RECENTLY "RETURNED FROM [place]" AND HAS PREVIOUSLY GOTTEN CARE THERE BUT SAW DR THOMSON OFFICE YESTERDAY FOR AN APPOINTMENT. RN DISCUSSES POC WITH PT, PT VERBALIZES UNDERSTANDING.
--- NOTE | 2023-12-19 17:23 | NUR ---
7011 ORTIZ HANDY UPDATED ON PT ARRIVAL, HX, COMPLAINTS, FHTS, CTX PATTERN, SVE. ORDERS TO REASSESS IN ONE HOUR. KELVIN LI.
--- NOTE | 2023-12-19 17:26 | NUR ---
PT REQUESTING TO AMBULATE. RN AGREES ONCE REACTIVE NST IS ACHIEVED.
[2023-12-19] MEDS ORDERED: LR & Oxytocin 500 ML IV SCH ×2 (17:45→18:15)
[2023-12-19] MEDS ORDERED: LR 1,000 ML IV SCH ×2 (17:45→18:15)
--- NOTE | 2023-12-19 17:46 | NUR ---
4440 ORTIZ HANDY UPDATED ON SVE AT 1 HOUR, FHTS, CTX PATTERN, PT DESIRE FOR EPIDURAL. . ORDERS TO ADMIT TO LABOR AND DELIVERY. STATES SHE WILL BE BEDSIDE SHORTLY TO ASSESS FOR AROM. KELVIN LI
[2023-12-19 18:11] LABS: BASO # 0.1 K/mm3 (0.0-0.2); BASO % 0.5 % (0.0-2.0); EOS # 0.1 K/mm3 (0.0-0.7); EOS % 0.5 % (0.0-4.0); GRAN # 8.9 K/mm3 (1.4-6.5); GRAN % 67.5 % (42.2-75.2); HEMATOCRIT 39.6 % (37.0-47.0); HEMOGLOBIN 14.5 g/dl (12.5-16.0); LYMPH % 22.4 % (20.0-51.0); MEAN CELL VOLUME 89 fl (80.0-100.0); MEAN CORPUSCULAR HEMOGLOBIN 33 pg (27-31); MEAN CORPUSCULAR HGB CONC 37 g/dl (33.0-37.0); MEAN PLATELET VOLUME 12.4 fl (7.4-10.4); MONO # 1.1 K/mm3 (0.1-0.6); MONO % 8.2 % (1.7-9.3); PLATELET COUNT 192 K/mm3 (130-400); RED BLOOD COUNT 4.44 M/mm3 (4.10-5.30); REDCELL DISTRIBUTION WIDTH-CV 12.9 % (11.5-14.5)
--- NOTE | 2023-12-19 18:31 | NUR ---
1800 MD BEDSIDE, ASSESSING FOR AROM. AROM PERFORMED AT 1800, CLEAR FLUID. PT TOLERATED WELL. SVE 5/-2 PER ORTIZ HANDY.
--- NOTE | 2023-12-19 18:32 | NUR ---
1825 DMITRIY [address] BEDSIDE
--- NOTE | 2023-12-19 18:38 | NUR ---
1825 - Pt called out stating she was feelig more pressure. Dr. Donnelly to bedside. SVE unchanged since last exam. Radha Velázquez CRNA en route to hospital for epidural placement. 183 - Second bag of LR infusing. SAVI Cary at bedside. 183 - Pt positioned to edge of bed. SAVI Cary explained epidural procedure, risks, and benefits thoroughly with patient, pt verbalized understanding and agreeable to proceed with procedure. 1837 - Difficulty tracing continuous FHR due to maternal positioning during epidural placement. 1838 - Single shot by SAVI Cary. Pt denies any adverse reactions. 1848 - Pt positioned to left lateral with pillow support. Bed in low and locked position, call light within reach. Educated on safety precautions. See anesthesia note.
--- NOTE | 2023-12-19 18:50 | NUR ---
Dr. Donnelly to bedside. Attempted to place FSE. Much artifact noted and FSE and switched back to external monitor. SVE /.
--- NOTE | 2023-12-19 18:55 | NUR ---
BP 88/51 in right arm while laying on left side. Repositioned patient more supine and recheck was 100/51. Pt denies feeling light headed or nauseous. Luis Daniel recommends giving ephedrine for drop in BP. See MAR.
--- NOTE | 2023-12-19 19:30 | NUR ---
Pt comfortable with epidural. Consents reviewed and signed by patient. Then placed graham catheter to dependent drainage. [place] colored urine out. Secured to leg with statlock. SVE /0.
[2023-12-19] MEDS ORDERED: diphenhydrAMINE 25 MG CAP PO PRN (19:45)
[2023-12-19] MEDS ORDERED: Ondansetron 4 MG/2 ML VIAL IV PRN (19:45)
[2023-12-19] MEDS ORDERED: ePHEDrine 50 MG/10 ML VIAL IV PRN (19:45)
[2023-12-19] MEDS ORDERED: Naloxone 0.4 MG/ML VIAL IV PRN ×2 (19:45→20:30)
[2023-12-19] MEDS ORDERED: diphenhydrAMINE 50 MG/ML 1 ML VIAL IV PRN (19:45)
--- NOTE | 2023-12-19 20:13 | NUR ---
2004 - Dr. Donnelly to bedside. SVE complete/+1. Room being set up for delivery. Nursery nurse Sasha called to bedside. 2008 - Pt positioned into footplates. Field catheter removed, 30 mL out. Pt educated on pushing techniques. Dr. Donnelly gowned and gloved at perineum. 2009 - Initial push at this time, moves fetus well. 2012 - Spontaneous vaginal delivery of viable infant boy. Terminal meconium noted at delivery. Infant placed to mothers abdomen, care of assumed to KELVIN Baez. Cord clamped x [address] Donnelly and cut by friend. Cord blood obtained. 2015 - Spontaneous delivery of intact placenta. Minimal bleeding noted. Pitocin started at 333 mu/min per protocol. Perineum intact per Dr. Donnelly. Pericare provided. QBL 75. 2019 - New chux beneath patient. Ice pack to perineum. Pt repositoined in bed for comfort. recovery started. See physician delivery note.
[2023-12-19] MEDS ORDERED: Measles/Mumps/Rubella Virus Vaccine Live w Diluent 0.5 ML VIAL SQ SCH (20:30)
[2023-12-19] MEDS ORDERED: Acetaminophen 500 MG TAB PO SCH (20:30)
[2023-12-19] MEDS ORDERED: Witch Hazel 50% Pads Bulk TUB TP PRN (20:30)
[2023-12-19] MEDS ORDERED: Mag/Al Hydrox/Simeth Susp 30 ML CUP PO PRN (20:30)
[2023-12-19] MEDS ORDERED: Phenylephrine/Mineral Oil/Petrolatum 57 GM TUBE RC PRN (20:30)
[2023-12-19] MEDS ORDERED: Loratadine 10 MG TAB PO PRN (20:30)
[2023-12-19] MEDS ORDERED: oxyCODONE 5 MG TAB PO PRN (20:30)
[2023-12-19] MEDS ORDERED: Magnes Hydrox (MOM) 80 MG/ML 30 ML CUP PO PRN (20:30)
[2023-12-19 20:46] LABS: TRICYCLIC ANTIDEPRESS URINE NEGATIVE (NEGATIVE)
[2023-12-19] MEDS ORDERED: traZODone 50 MG TAB PO PRN (21:00)
--- NOTE | 2023-12-19 23:10 | NUR ---
Pt positioned to sitting on edge of bed. Epidural catheter removed. Tip smooth, blue, and intact. Pt to bathroom using Cristina Steady. Able to void 400 mL bloody urine. Pericare explained and provided. Clean gown on. Mesh panties and ice pack on. Pt transferred to room 215 in wheelchair with belongings. pushed in crib by FOB.
[2023-12-20 00:15] VITALS: BP 106/61; PULSE 85; TEMP 97.9
[2023-12-20 06:30] VITALS: BP 106/67; PULSE 70; TEMP 98.6
[2023-12-20] MEDS ORDERED: Sennosides/Docusate 8.6-50 MG TAB PO SCH (08:00)
--- NOTE | 2023-12-20 09:17 | NUR ---
Initial visit; Patient thanked Health Information Systems Technician for looking in on her and offering congratulations and god's blessings for the of her son. Health Information Systems Technician thanked patient for choosing [facility] and was pleased to hear her experience with us has been a good one.
[2023-12-20 12:30] VITALS: BP 110/57; PULSE 82
--- NOTE | 2023-12-20 12:36 | NUR ---
rodding anode worker received a consult for patient due to her testing positive for marijuana during and when she delivered. SW met with patient's nurse whom reported patient and baby tested positive for marijuana when she delivered. Patient also tested positive for methamphetamine but nurse reports patient was giving ephedrine which would cause a positive methamphetamine result. Patient has had three post-anum children deaths for SIDS, pneumonia (5 year old), overdose (7 year old). Patient's nurse reported patient has been appropriate with baby but anxious with her history of child loss. SW met with patient to complete an intake. Patient was on facetime with her cousin, but wanted to continue with the intake while on facetime. Patient's PCP is Candi Vo but she stated she has not had a chance to see them but will now that her insurance is finalized. Pharmacy is [facility]. Patient reports the father of the baby is Nayan Perez, her and father to her two other living children, Vitor (2 years old) and Abraham (6 years old). Patient reports they moved to [place] for 8 months and returned to [place] October 16 in the evening. Patient stated she has friend support here in [place] but no family around. Patient explained Nayan's father is here but they do not speak with him due to previous concerns on his treatment towards their children. Patient reports she has a crib, pack and play, bassinet, clothing, diapers and car seat. Patient explained the car seat that she has is used but she reported she had it inspected by the fire department and they cleared it but was not certain if the hospital wanted her to have a new one but will discuss with her nurse and doctor. Patient explained she was going to purchase more diapers to stock up as she was paid today. Patient stated she works at [employer] and her is a delivery driver assistant for [employer] but is looking for another job. Carissa has [employer]. Patient reports to already be established with [facility] services. Patient explained she will be breast feeding and she is aware she tested positive for marijuana but nursing/physician cleared her to breast feed. Patient reports to have a pump at home already along with bottles. Patient reports she uses CBD oil during her because she is worried about her seizures but she is stopping now that she has delivered. SW discussed the positive for methamphetamines and she explained she has never used methamphetamines and that it was from the ephedrine and her nurse informed her of the positive result. Patient has chose Dr. Chappell as her baby's doctor. SW discussed her other children. Patient explained she now has three living children, but she has had a total of 10 pregnancies. Patient reports she had three children pass away, one from SIDS, her 5 year old from pneumonia and then her 7 year old was with his father and overdosed on vicodin and did not survive. Patient reports she is in therapy with Antwon at [facility] and she sees him either via telephone or video call twice a week. Patient reports she was diagnosed with depression 2 weeks ago and would be starting Lexapro in about a week. SW discussed any other mental health diagnosis. 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 SW provided resources for the community along with the drug and alcohol resources. Patient reported she was going to stop the CBD oil now that she has delivered she can be placed on her medications so she will not worry about seizures. Patient has no questions or concerns. SW relayed the information above to patient's nurse. SW made CPS report due to the concerns of drug usage and history of children deaths. Intake ID [id number]
[2023-12-20 16:30] VITALS: BP 112/62; PULSE 87
[2023-12-20 19:05] VITALS: BP 99/51; PULSE 72; TEMP 97.9
[2023-12-21 07:45] VITALS: BP 108/62; PULSE 71; TEMP 98
--- NOTE | 2023-12-21 07:45 | NUR ---
Rests in bed, alert. Pain medication given. Tylenol 100 mg, roxycodone 5 mg given per request and as ordered.
[2023-12-21] MEDS ORDERED: LOVENOX 4040 MG/0.4 SQ (10:25)
[2023-12-21] MEDS ORDERED: ROXICODONE 55 MG/TAB PO (10:26)
--- NOTE | 2023-12-21 10:50 | NUR ---
Lovenox 40 mg given subque to abdomen as ordered.
--- NOTE | 2023-12-21 15:01 | NUR ---
Roxicodone 5 mg given per request and as ordered.
--- NOTE | 2023-12-21 17:31 | NUR ---
Rests in bed, alert. certificate given and signed.
--- NOTE | 2023-12-26 08:34 | NUR ---
ADINA receieved positive cord blood results and made CPS report intake number [id number].
== END 2023-12-21 17:50 | disposition home or self-care (01) | DRG 806 ==
LOC: LDRO 16:02 → LDR 17:45 → EDSTATUS 18:12 → OB 23:15
PROVIDERS: Obstetrics & Gynecology; ADMIT Obstetrics & Gynecology
PROC: 10E0XZZ Delivery of Products of Conception, External Approach (ICD-10-PCS; principal; 2023-12-19)
PROC: 10907ZC Drainage of Amniotic Fluid, Therapeutic from Products of Conception, Via Natural or Artificial Opening (ICD-10-PCS; 2023-12-19)
DX: O99.344 Other mental disorders complicating childbirth (principal); I69.354 Hemiplegia and hemiparesis following cerebral infarction affecting left non-dominant side; Z37.0 Single live birth; O99.324 Drug use complicating childbirth; O99.354 Diseases of the nervous system complicating childbirth; Z3A.38 38 weeks gestation of pregnancy; F60.3 Borderline personality disorder; O99.214 Obesity complicating childbirth; F12.90 Cannabis use, unspecified, uncomplicated; F89 Unspecified disorder of psychological development; M41.9 Scoliosis, unspecified; O99.892 Other specified diseases and conditions complicating childbirth; G40.909 Epilepsy, unspecified, not intractable, without status epilepticus; G43.909 Migraine, unspecified, not intractable, without status migrainosus; O76 Abnormality in fetal heart rate and rhythm complicating labor and delivery; J45.909 Unspecified asthma, uncomplicated; O99.02 Anemia complicating childbirth; D64.9 Anemia, unspecified; F41.9 Anxiety disorder, unspecified; O99.52 Diseases of the respiratory system complicating childbirth; Z14.1 Cystic fibrosis carrier; Q07.00 Arnold-Chiari syndrome without spina bifida or hydrocephalus
CPT/HCPCS: J1650; J2590; J7120

== ENCOUNTER 2024-02-22 18:17 | Emergency (ER) | payer MEDICAID ==
[~2024-02-22] VITALS: Ht 162.6 cm; Wt 140.9 kg
[~2024-02-22 18:17] MED LIST changes: +PRILOSEC10 MG PO
[2024-02-22 18:21] VITALS: TEMP 97.1
[2024-02-22 19:33] VITALS: BP 124/82; PULSE 96
[2024-02-22] MEDS ORDERED: Lidocaine 4% Topical Patch TP ONE (20:45)
[2024-02-22] MEDS ORDERED: Acetaminophen 500 MG TAB PO ONE (20:45)
[2024-02-22] MEDS ORDERED: LIDODERM 5% PATC1 EA TP (21:11)
== END 2024-02-22 23:10 | disposition home or self-care (01) ==
LOC: COL.ER 18:17
DX: M54.6 Pain in thoracic spine (principal); G89.29 Other chronic pain; Z91.040 Latex allergy status

== ENCOUNTER → 2024-03-10 | Outpatient (CLI) | payer MEDICAID ==
[~2024-03-10] MED LIST changes: +LIDODERM 5% PATC1 EA TP
== END ==
LOC: COL.RAD 16:19
DX: M51.37 Other intervertebral disc degeneration, lumbosacral region (principal)

== ENCOUNTER → 2024-04-07 | Outpatient (CLI) | payer MEDICAID ==
[~2024-04-07] VITALS: Ht 162.6 cm; Wt 115.0 kg
[~2024-04-07] MED LIST changes: +CAMILA0.35 MG PO; +MINIPILL; +PLAVIX 75MG TAB75 MG PO; +SEREVENT IH; +Triamcinolone 40 MG/ML 1 ML VIAL IJ SCH; +VITAMIN D250 MCG PO; +ZANAFLEX2 MG PO
[2024-04-07 12:55] VITALS: BP 97/69; PULSE 78; TEMP 98.1
--- NOTE | 2024-04-07 13:23 | NUR ---
PATIENT SCORED LOW RISK ON SUICIDE RISK ASSESSMENT. SHE DOES ENDORSE HAVING THOUGHTS ABOUT SUICIDE, BUT DENIES INTENTION OR PLAN. SHE STATES SHE SEES A THERAPIST, BUT THAT SHE HAS NOT TOLD HER THERAPIST ABOUT THIS. PATIENT STATES THAT SHE IS PLANNING ON TELLING HER THERAPIST TODAY WHEN THEY SPEAK. THIS CIRCULAR SAW EDGE FUSER CALLED HEALTH INFORMATICS ADVISOR OLU MILLER AND EXPLAINED THE SITAUTION TO HER. OLU STATES THAT SHE WILL COME BY TO SPEAK WITH THE PATIENT AND GIVE RESOURCES.
--- NOTE | 2024-04-07 13:28 | NUR ---
WHEN EXPLAINING PROCEDURE TO PATIENT, SHE STATES THAT HER PAIN IS MORE IN HER UPPER BACK THAN HER LOWER BACK. TOLD THIS TO RADIOLOGIST AND HE REQUESTS THE NURSE CALL THE PATIENT'S DOCTOR'S OFFICE FOR A NEW ORDER. CALLED DR. KRUEGER'S OFFICE AND HAVE REQUESTED A NEW ORDER. AWAITING RESPONSE FROM / PATI'S OFFICE.
--- NOTE | 2024-04-07 14:07 | NUR ---
INSPECTOR LINE OLU IS CURRENTLY SPEAKING WITH PATIENT. DR. KRUEGER'S OFFICE IS GOING TO CALL DR. VASQUEZ DIRECTLY TO DISCUSS THE JAKY.
--- NOTE | 2024-04-07 14:19 | NUR ---
DR. VASQUEZ HAS COME BY TO SPEAK WITH THE PATIENT FACE TO FACE. PATIENT OKAY WITH MOVING FORWARD WITH THE JAKY L5-S1.
--- NOTE | 2024-04-07 14:37 | NUR ---
auto body worker was notified by radiology nurse that during her safety assessment patient stated she had thoughts of harming herself but no plan or intention of acting upon those thoughts. SW met with patient whom initially stated she did not want to see the social sciences department chair but began discussing her recent concerns at home with the social sciences department chair. Patient reports she has had concerns with her arguing with her and yelling when the oldest kid messes with her 's collectible items. Patient explained she has given her an ultimatum because she was tired of the yelling. Patient stated she or he may need to move out if he does not change his ways but he has said if they were to split up that she would keep the children but he would still be involved. Patient explained her oldest kid (5 years old) has been acting out and she feels like she has been a bad mother. Patient explained she has got her son into therapy at [facility] where she goes to therapy as well. Patient explained he is doing play and talk therapy there. Patient explained she is still in therapy with Antwon Cade at [facility] once a week via telephone but it is set up where if she needs to talk, she can contact him at anytime. SW asked about supports for her, patient explained she is currently living in the basement of a home with her but on the top floor her brother and his significant other live. Patient explained her brother and significant other have been a good support system for her. auto body worker discussed patient's thoughts of harming herself. Patient stated she has thoughts but would never act upon the thoughts because of her children. Patient stated she does not have a plan or any intention of harming herself, only has thoughts. Patient stated she already planned to speak with Antwon (therapist) about her thoughts during her therapy session tonmame (9 pm). Patient has had Maternal and Child Health services before with her oldest child, social sciences department chair reviewed the information with her again and explained if patient needs or wants the additional support they have a QR code on the back of the pamphlet that she can refer herself to their program. Patient understood. SW reviewed the other resources with patient including community resources for financial assistance, food assistance, mental health resources, suicide prevention number and additional resources that [facility] provides. Patient explained she is working with VR at [facility] to get a job since she lost hers. SW provided contact information for [employer] and explained if patient was applying or has disability she would not qualify for [employer]. Patient understood but would look into it as an option. Patient reports she has food stamps at home and is not concerned at this time about food at home. SW asked if patient has any questions or concerns. Patient stated not at this time. SW reminded patient to make sure she discusses everything she has mentioned today with her therapist ron. Patient stated she would. SW notified radiology nurse of this information and that patient plans to follow up with her therapist ron during their planned session.
[2024-04-07 14:58] VITALS: BP 111/76; PULSE 70
--- NOTE | 2024-04-07 15:24 | NUR ---
PATIENT HAS COMPLETED HER RECOVERY TIME WITHOUT ANY ISSUES. PATIENT HAS ALL RESOURCES FROM SOCIAL WORK WITH HER. PATIENT IS ABLE TO WALK AND DENIES ANY NUMBNESS OR TINGLING. ESCORTED PATIENT WITH ALL OF HER BELONGINGS AND PAPERWORK VIA WHEELCHAIR OUT TO PATIENT ENTRANCE. PATIENT WAS ABLE TO GET INTO THE FRONT PASSENGER SEAT WITHOUT ANY ASSISTANCE. ALL NEEDS MET.
== END ==
LOC: COL.RAD 12:27
DX: Q76.49 Other congenital malformations of spine, not associated with scoliosis (principal)
CPT/HCPCS: J0665; J3301